=== PATIENT | male | born 1945 | race Caucasian/White ===

== ENCOUNTER → 2016-05-24 | Outpatient (CLI) | payer BC ==
[~2016-05-24] MED LIST: ALL60 PO
== END | disposition home or self-care (01) ==
LOC: C.LAB 09:48
PROVIDERS: ATTEND Urology
DX: C61 Malignant neoplasm of prostate (principal)

== ENCOUNTER → 2016-06-21 | Outpatient (CLI) | payer BC ==
[~2016-06-21] MED LIST changes: +OPTIRAY 320 IV PRN
--- NOTE | 2016-06-21 13:17 | DIAGNOSTIC IMAGING REPORT ---
ABDOMEN AND PELVIS CT WITH IV AND ORAL CONTRAST CT DOSE: HISTORY: C61 Malignant neoplasm of prostate TECHNIQUE: Multiaxial CT images of the abdomen and pelvis were performed following the use of intravenous and oral contrast. COMPARISON STUDY: Abdomen and pelvis CT 05/05/2011. FINDINGS: Partial opacification of the left lower lobe bronchi with tree-in-bud nodular opacities. This has improved in the interval. This favors a chronic bronchiolitis. No suspicious lytic or blastic osseous lesions. There is a 5 mm hypodense lesion within the left hepatic lobe. This is too small to characterize. The gallbladder, spleen, right adrenal gland, and pancreas are unremarkable. Stable mild thickening within the left adrenal gland. There are few bilateral renal hypodense lesions. The largest within the lower pole of the right kidney measures 1.4 cm. The largest in the left kidney measures 3.9 cm. These likely represent cysts. No hydronephrosis. No retroperitoneal or mesenteric lymphadenopathy. A 1.4 cm cystic focus within the upper right rectus abdominis muscle. This is best seen on image 191. Tiny fat-containing umbilical hernia. Mild bladder wall thickening. The prostate gland is surgically absent. Multiple pelvic surgical clips. No pelvic lymphadenopathy. No bowel wall thickening or obstruction. Normal appendix. IMPRESSION: 1. Status post prostatectomy. No evidence for metastatic disease within the abdomen or pelvis. 2. A 1.4 cm hypodense/cystic lesion within the right rectus abdominis muscle. This is of uncertain clinical significance. This is unlikely to represent a metastatic focus. However, this bears watching future examinations to ensure stability. 3. Mild bladder wall thickening, unchanged. 4. Improved aeration within the left lower lobe. There is persistent partial opacification of the left lower lobe bronchi and tree-in-bud nodular opacities. This may represent a chronic bronchiolitis. Electronically signed by: Segun Soto M.D. 06/21/2016 1:16 PM Dictated Date/Time: 06/21/2016 1:04 PM
--- NOTE | 2016-06-21 13:21 | DIAGNOSTIC IMAGING REPORT ---
WHOLE BODY BONE SCAN HISTORY: C61 Malignant neoplasm of prostate RADIOTRACER: 27.5 mCi Tc-99m MDP STUDY/IMAGES: Planar anterior and posterior whole body imaging was performed 3 hours following the intravenous administration of radiotracer. COMPARISON: Abdomen and pelvis CT 06/21/2016. FINDINGS: No suspicious areas of radiotracer uptake seen within the axial or appendicular skeleton. Mild radiotracer uptake seen within the shoulders, knees, left lower cervical spine and right wrist favor degenerative change. IMPRESSION: No evidence for metastatic disease within the axial or appendicular skeleton. Electronically signed by: Segun Soto M.D. 06/21/2016 1:19 PM Dictated Date/Time: 06/21/2016 1:16 PM
== END | disposition home or self-care (01) ==
LOC: C.NUCL 09:41
PROVIDERS: ATTEND Urology
DX: C61 Malignant neoplasm of prostate (principal)

== ENCOUNTER → 2016-09-21 | Outpatient (CLI) | payer BC ==
[~2016-09-21] MED LIST changes: -OPTIRAY 320 IV PRN
== END | disposition home or self-care (01) ==
LOC: C.LAB1850 09:55
PROVIDERS: ATTEND Urology
DX: C61 Malignant neoplasm of prostate (principal)

== ENCOUNTER → 2016-12-22 | Outpatient (CLI) | payer BC | END | disposition home or self-care (01) | LOC: C.LAB1850 09:01 | PROVIDERS: ATTEND Urology | DX: C61 Malignant neoplasm of prostate (principal) ==

== ENCOUNTER → 2017-04-25 | Outpatient (CLI) | payer BC | END | disposition home or self-care (01) | LOC: C.LAB1850 10:52 | PROVIDERS: ATTEND Urology | DX: C61 Malignant neoplasm of prostate (principal) ==

== ENCOUNTER → 2017-09-02 | Outpatient (CLI) | payer BC | END | disposition home or self-care (01) | LOC: C.LAB1850 09:18 | PROVIDERS: ATTEND Urology | DX: C61 Malignant neoplasm of prostate (principal) ==

== ENCOUNTER 2019-10-06 11:00 | Observation (INO) ==
[2019-10-06 12:00] LABS: Basophils # (auto) 0.01 K/uL (0-0.2); Basophils % (auto) 0.2 %; Eosinophils # (auto) 0.01 K/uL (0-0.5); Eosinophils % (auto) 0.2 %; Hematocrit (blood only) 36.1 % (42-52); Hemoglobin 13.2 g/dL (14.0-18.0); Lymphocytes # (auto) 1.07 K/uL (1.2-3.4); Lymphocytes % (auto) 17.8 %; Mean Corpuscular Hemoglobin 31.1 pg (25-34); Mean Corpuscular Hgb Conc 36.6 g/dL (32-36); Mean Corpuscular Volume 84.9 fL (80-100); Mean Platelet Volume 9.3 fL (7.4-10.4); Monocytes # (auto) 0.44 K/uL (0.11-0.59); Monocytes % (auto) 7.3 %; Neutrophils # (auto) 4.49 K/uL (1.4-6.5); Neutrophils % (auto) 74.5 %; Platelet Count 217 K/uL (130-400); RDW Coefficient of Variation 12.5 % (11.5-14.5); RDW Standard Deviation 38.4 fL (36.4-46.3); Red Blood Count 4.25 M/uL (4.7-6.1); White Blood Count 6.02 K/uL (4.8-10.8)
[2019-10-06] MEDS ORDERED: SODIUM CHLORIDE 0.9% 1000ML 1,000 ML IV SCH (12:00)
[2019-10-06 12:07] LABS: Appearance Urine Clear (Clear); Bilirubin Urine Negative (Negative); Blood Urine Negative (Negative); Color Urine Yellow; Glucose Urine UA Negative (Negative); Ketones Urine Negative (Negative); Leukocyte Esterase Urine Negative (Negative); Nitrite Urine Negative (Negative); Protein Urine Negative (Negative); Specific Gravity Urine 1.008 (1.000-1.030); Urobilinogen Urine Negative (Negative)
[2019-10-06 12:14] LABS: Partial Thromboplastin Time 26.9 Seconds (21.0-31.0); Prothrombin Time 10.1 Seconds (9.0-12.0)
[2019-10-06 12:17] LABS: Alanine Aminotransferase 24 U/L (12-78); Albumin Level 3.2 gm/dl (3.4-5.0); Aspartate Aminotransferase 20 U/L (15-37); BUN Creatinine Ratio 14.1 (10-20); Bilirubin Direct 0.1 mg/dl (0-0.2); Blood Urea Nitrogen 12 mg/dl (7-18); Carbon Dioxide 25 mmol/L (21-32); Chloride 104 mmol/L (98-107); Creatinine Clr Calc Pharmacy 65.6 ml/min; Est GFR (African American) 100.7; Est GFR (Non-African American) 86.9; Glucose 99 mg/dl (70-99); Lipase 95 U/L (73-393); Magnesium 2.3 mg/dl (1.8-2.4); Potassium 4.2 mmol/L (3.5-5.1); Sodium 134 mmol/L (136-145)
[2019-10-06 12:21] LABS: Albumin Globulin Ratio 0.8 (0.9-2); Alkaline Phosphatase 107 U/L (45-117); Bilirubin,Total 0.5 mg/dl (0.2-1); Globulin 4.1 gm/dl (2.5-4.0); Phosphorus 3.2 mg/dl (2.5-4.9); Total Protein 7.3 gm/dl (6.4-8.2); Troponin I < 0.015 ng/ml (0-0.045)
--- NOTE | 2019-10-06 13:08 | XRay Report ---
XR chest 1V portable CLINICAL HISTORY: Chest Pain dyspnea COMPARISON STUDY: 01/02/2019 FINDINGS: Focal parenchymal infiltrate left base. This is superimposed upon mild chronic fibrotic yazan nge. Lungs otherwise appear clear. Diaphragms are smooth. IMPRESSION: Infiltrate left base. ACT 112: Negative or not required by law. The above report was generated using voice recognition software. It may contain grammatical, syntax or spelling errors. Electronically signed by: Javan Rowe M.D. 10/06/2019 1:07 PM
--- NOTE | 2019-10-06 13:40 | Electrocardiogram Report ---
Test Reason : Blood Pressure : / mmHG Vent. Rate : 068 BPM Atrial Rate : 068 BPM P-R Int : 174 ms QRS Dur : 088 ms QT Int : 412 ms P-R-T Axes : 073 078 072 degrees QTc Int : 438 ms Normal sinus rhythm Normal ECG When compared with ECG of 11-MAY-2011 14:09, No significant change was found Confirmed by Delon Bailey ([id number]) on 10/06/2019 1:40:47 PM Referred By: REFERRED SELF Confirmed By:Delon Bailey
[2019-10-06] MEDS ORDERED: OPTIRAY 320 125ml IV PRN (13:56)
--- NOTE | 2019-10-06 14:04 | CT Scan Report ---
CT angio chest PE protocol CT DOSE: 306.08 mGycm HISTORY: Dyspnea PE - COVid+ TECHNIQUE: Multiaxial CT images of the chest were performed following the intravenous administration of contrast to evaluate the pulmonary arteries. Maximal intensity projection images were also obtaine d. A dose lowering technique was utilized adhering to the principles of ALARA. COMPARISON STUDY: None. FINDINGS: There is a normal caliber thoracic aorta with no evidence for dissection. There is no evide nce for pulmonary embolus. No pleural effusions. No pneumothorax. The liver and spleen are unremarkab le. No mediastinal or hilar lymphadenopathy. The central airways are patent. The lungs are remarkable for left lower lobe parenchymal infiltrate. Lungs otherwise appear clear. IMPRESSION: 1. No evidence for pulmonary embolus. 2. Left lower lobe infiltrate. ACT 112: Negative or not required by law. The above report was generated using voice recognition software. It may contain grammatical, syntax or spelling errors. Electronically signed by: Javan Rowe M.D. 10/06/2019 2:03 PM
[2019-10-06] MEDS ORDERED: AZITHROMYCIN 500 MG in DEXTROSE 5% 250 ML IV ONE (14:17)
[2019-10-06] MEDS ORDERED: cefTRIAXone SODIUM 2,000 MG/70 ML BAG IV STA (14:17)
--- NOTE | 2019-10-06 15:48 | History & Physical Report ---
Date of Service October 06, 2019 Assessment & Plan (1) Community acquired pneumonia: Suspected bacterial pneumonia based on CT. Although WBC, procalcitonin and history not conclusive of this, therefore will observe overnight and aim for discharge tomorrow as long as he is improving. Continue ceftriaxone and azithromycin (2) COVID-19: Prior outpatient testing COVID-19 positive within 14 days Admit to COVID-19 unit Monitor for hypoxia although his symptoms are mostly GI related (3) Diarrhea due to COVID-19: (4) Dyspnea on minimal exertion: Secondary to COVID-19 and now CAP as above. (5) Prostate cancer: Noted to be on leuprolide injections every 4 months. PSA stable since December 2018 without lower obstructive symptoms (6) Hypertension: Continue lisinopril 10mg PO HS (7) DVT prophylaxis: Deferred SCDs or chemical prophylaxis as ambulatory and likely short stay Admission and Anticipated Discharge Date Admission Date: 10/06/2019 History of Present Illness Chief Complaint: Shortness of breath Primary Care Provider: MATTIE Gutierres, MS, [facility] Roberto Gonzalez is a 74 year old male who presents to the ER due to ongoing diarrheal illness and low grade fevers since being diagnosed with COVID-19. Initial illness started on September 24 with generalized muscle aches. He became significantly worse with fevers > 100, loose non-watery brown stool, loss of appetite and taste the following day. He was tested for COVID-19 by his PCP and subsequently came back positive. He has been self isolating in his house since diagnosis and his has not fallen ill. No double worsening of his illness but he felt he was not keeping up with his oral intake and did not feel he was significantly improving so decided to come to the ER. For the past 2 days his fevers are now < 100 and diarrhea has improved with Immodium. He denies any abdominal pain, nausea, vomiting, melena or blood in stool. On occasional he does feel like food is getting stuck in his esophagus or stomach and just not moving through. Initial plan was to discharge him home with diagnosis of CAP based on CT findings, but on discussion with his she is concerned about caring for him at home and needing to return to the ER as they live almost 35 minutes away in an emergency. In addition his WBC and procalcitonin level was negative therefore I am less confident he would significantly improve on antibiotics at home and recommended observation at least overnight. Allergies Allergy/AdvReac Type Severity Reaction Status Date / Time No Known Allergies Allergy Unknown Verified 10/06/19 12:10 Home Medications Home Medications Medication Instructions Recorded Confirmed Type albuterol sulfate 90 mcg/actuation 1 puffs INHALATION Q6H PRN gm 11/28/18 10/06/19 History aerosol inhaler azelastine 137 mcg (0.1 %) nasal 2 sprays INTRANASAL DAILY PRN #8 ml 11/28/18 10/06/19 History spray aerosol fexofenadine 180 mg tablet 180 mg PO QAM tab 11/28/18 10/06/19 History leuprolide (4 month) 30 mg (4 30 mg IM Q16W #1 ea 04/20/19 10/06/19 Rx month) intramuscular syringe kit lisinopril 10 mg PO HS 10/06/19 10/06/19 History Past Med/Surg History Medical History Basal cell carcinoma (Inactive) Chronic cough Chronic rhinitis Surgical History History of bladder surgery Hx of prostatectomy Family History Other Family history non-contributory Denies family history of Ovarian cancer Prostate cancer Diabetes Myocardial infarction Breast cancer Lung cancer Colorectal cancer Stroke Social History Preferred Language: [place] Communication Ability: Effective Visual Impairment: No Limitations Hearing Ability: Normal Ivory Polisher Required: No Beliefs That Will Affect Care: None marital status: Current Living Situation: Spouse current occupational status: retired Other Information That Helps Us Care for You: No Feels Safe at Home: Yes Safety Concerns: Feels Safe At This Time Smoking Status: Never smoker Second Hand Exposure: No ; Hx Alcohol Use: Yes Alcohol type: beer Alcohol Intake Frequency: Weekly Hx Substance Use: No Childhood Exposure to Second-Hand Smoke: Yes caffeine: No Review of Systems Review of Systems: All systems reviewed & are unremarkable except as noted in HPI & below Physical Exam Constitutional: WD/WN, vitals as above no acute distress Eyes: PERRL, conjunctivae normal, anicteric sclerae ENMT: external ear and nose normal, oropharynx normal Neck: trachea midline, no thyromegaly Respiratory: normal respiratory effort, lungs clear to auscultation Cardiovascular: RRR, no murmur, no edema Gastrointestinal (Abdomen): normal bowel sounds, soft, nontender, no hepatosplenomegaly Musculoskeletal: no cyanosis or clubbing, extremities motor strength 5/5 Skin: no rashes, warm and dry Neurologic: moves all extremities and awake; no focal motor deficits and not confused Motor/Sensory: + pronator drift; no sensory deficit Psychiatric: A+Ox3, euthymic affect Genitourinary: no CVA tenderness Lymphatic: no cervical or axillary lymphadenopathy Results & Data Results & Data ([facility]) Vital Signs (Past 12 Hours) Vital Signs Temp Pulse Resp BP Pulse Ox 10/06/19 13:30 66 19 96 10/06/19 12:30 67 19 174/89 H 99 10/06/19 12:00 70 19 144/85 H 97 10/06/19 11:31 74 20 167/88 H 98 10/06/19 11:12 36.8 C 10/06/19 11:03 74 18 96 Diagnostic Findings XR chest 1V portable IMPRESSION: Infiltrate left base. CT angio chest PE protocol IMPRESSION: 1. No evidence for pulmonary embolus. 2. Left lower lobe infiltrate. ECG Indication: SOB/dyspnea Rate (beats per minute): 68 Rhythm: normal sinus Findings: no acute ischemic change Comparison ECG Date: from (May 11, 2011) Change: no significant change Code Status & VTE Plan Code Status Full VTE Prophylaxis Plan VTE Prophylaxis will be ordered: No Reason for no VTE drug order: Treatment not indicated Reason for no VTE mechanical prophylaxis: Treatment not indicated PG Care Time/CCT Total # of Minutes Spent Total Time Spent with Patient: Total time spent is greater than 50% in coordination of care (as documented) at patient's floor/unit and/or counseling patient: Coding Level of Care Code 00851 OBS Care - Level 3 Diagnoses Community acquired pneumonia J18.9 COVID-19 U07.1 Diarrhea due to COVID-19 U07.1; A08.39 Dyspnea on minimal exertion R06.00 Prostate cancer C61 Hypertension I10 DVT prophylaxis Z29.9
[2019-10-06] MEDS ORDERED: ALBUTEROL HFA 8 GM INHALER INH PRN (16:53)
[2019-10-06] MEDS ORDERED: MAGNESIUM HYDROXIDE SUSP 30 ML UDC PO PRN (16:53)
[2019-10-06] MEDS ORDERED: ONDANSETRON INJ 2 MG/ML 2 ML VIAL IV PRN (16:53)
[2019-10-06] MEDS ORDERED: LOPERAMIDE HCL 2 MG CAP PO PRN (16:53)
[2019-10-06] MEDS ORDERED: ACETAMINOPHEN 325 MG TAB PO PRN (16:53)
[2019-10-06] MEDS ORDERED: POLYETHYLENE (MIRALAX) 17 GM PACK PO PRN (16:53)
[2019-10-06] MEDS ORDERED: ALUMINUM/MAGNESIUM SUSP 30 ML UDC PO PRN (16:53)
[2019-10-06] MEDS ORDERED: cefTRIAXone SODIUM 2,000 MG in DEXTROSE 5% 50 ML IV SCH (18:00)
--- NOTE | 2019-10-06 18:08 | Emergency Department Note ---
Impression & Plan COVID-19, Community acquired pneumonia, Hypertension, Prostate cancer, Dyspnea on minimal exertion, Nausea & vomiting, Diarrhea due to COVID-19 ED Provider Note NAME: JESSA YUN AGE: 74 SEX: M ARRIVES VIA: Walk-In INFORMANT: Patient, ED PROVIDER(S): Bhavik Quiroz MD CHIEF COMPLAINT: Shortness of breath, fevers, nausea, vomiting, diarrhea. PLAN: Disposition: Admit MEDICAL DECISION MAKING: The patient is a pleasant 74-year-old gentleman with a past medical history of hypertension and prostate cancer status post treatment who presents emergency department for worsening shortness of breath, generalized weakness, nausea, vomi ting, diarrhea and decreased oral intake over the past week in the setting of being diagnosed with COVID-19 on Tuesday with symptoms starting on 09/24 in the setting of being exposed to his kntlst-xh-ecp who was diagnosed with COVID-19 is now admitted at [facility]. He reports his only interaction with his orvxbg-ah-ksp was when he was getting sicker and he went over to help facilitate with his transfer to the hospital by ambulance. He recalls helping him get his things together and there was a fan in the house "blowing all the air around." On arrival the patient is uncomfortable appearing but no acute distress, afebrile with stable vital signs. He has subtle rhonchi in the left lung base and otherwise lungs are clear. EKG without overt acute ischemia. Patient's chest x-ray does demonstrate subtle left basilar infiltrate. WBC and place within normal limits. H/H 13.2/36.1 without recent values for comparison. Chemistry without acidosis. Electrolytes and LFTs unremarkable. Troponin negative/undetectable. Lactate within normal limits. UA negative. Given the patient's report of shortness of breath that seems out of proportion to CXR findings, CTA of the chest was performed and negative for PE but does show more appreciable left basilar infiltrate. While patient blood work and vital signs are stable, given the patient's age and his presentation with worsening symptoms within a window where a high risk patient could have precipitous decline related to COVID-19 complications he did agree to proceed with admission. Will treat with ceftriaxone and azithromycin given the patient's infiltrate. Case was discussed with Dr. Fernández, [facility] hospitalist, who will evaluate the patient for admission. Triage Nursing notes reviewed and agree them. Prior medical records reviewed Vital Signs: reviewed and remarkable for no significant abnormalities Differential diagnosis: Reactive airway disease, pneumonia, pneumothorax, COPD, CHF, infections, cardiac ischemia, pulmonary embolism, musculoskeletal, gastrointestinal, as well as other pathologies. ER treatment provided: See below. Diagnostics interpreted by me: ECG: NSR, 68 bpm, normal axis, no ectopy, no overt ST elevation or depression. Cardiac Monitoring: An order for continuous cardiac monitoring was placed and demonstrated NSR, 68 bpm, no ectopy Laboratory studies: See below Imaging studies: XR chest 1V portable CLINICAL HISTORY: Chest Pain dyspnea COMPARISON STUDY: 01/02/2019 FINDINGS: Focal parenchymal infiltrate left base. This is superimposed upon mild chronic fibrotic change. Lungs otherwise appear clear. Diaphragms are smooth. IMPRESSION: Infiltrate left base. -- CT angio chest PE protocol CT DOSE: 306.08 mGycm HISTORY: Dyspnea PE - COVid+ TECHNIQUE: Multiaxial CT images of the chest were performed following the intravenous administration of contrast to evaluate the pulmonary arteries. Maximal intensity projection images were also obtained. A dose lowering technique was utilized adhering to the principles of ALARA. COMPARISON STUDY: None. FINDINGS: There is a normal caliber thoracic aorta with no evidence for dissection. There is no evidence for pulmonary embolus. No pleural effusions. No pneumothorax. The liver and spleen are unremarkable. No mediastinal or hilar lymphadenopathy. The central airways are patent. The lungs are remarkable for left lower lobe parenchymal infiltrate. Lungs otherwise appear clear. IMPRESSION: 1. No evidence for pulmonary embolus. 2. Left lower lobe infiltrate. Consultation(s): Case was discussed with Dr. Fernández, [facility] hospitalist, who will evaluate the patient for admission. HPI: The patient is a pleasant 74-year-old gentleman with a past medical history of hypertension and prostate cancer status post treatment who presents emergency department for worsening shortness of breath, generalized weakness, nausea, vomiting, diarrhea and decreased oral intake over the past week in the setting of being diagnosed with COVID-19 on Tuesday with symptoms starting on 09/24 in the setting of being exposed to his kkiisw-ip-ate who was diagnosed with COVID-19 is now admitted at [facility]. He reports his only interaction with his wijxmm-wz-ehu was when he was getting sicker and he went over to help facilitate with his transfer to the hospital by ambulance. He recalls helping him get his things together and there was a fan in the house "blowing all the air around." ROS: See above HPI for pertinent positives & negatives. A total of 10 systems reviewed and were otherwise negative. PAST MEDICAL HISTORY:See Below PAST SURGICAL HISTORY:See Below FAMILY HISTORY:See Below SOCIAL HISTORY:See Below HOME MEDICATIONS:See Below ALLERGIES:See Below VITALS:See Below PHYSICAL EXAMINATION: GENERAL: Awake, alert, fatigued-appearing, in no distress HENT: Normocephalic, atraumatic. Oropharynx with dry mucous membranes and otherwise unremarkable. EYES: Normal conjunctiva. Sclera non-icteric. NECK: Supple. No nuchal rigidity. FROM. No JVD. RESPIRATORY: Clear to auscultation. CARDIAC: Regular rate, normal rhythm. Extremities warm and well perfused. Pulses equal. ABDOMEN: Soft, non-distended. No tenderness to palpation. No rebound or guarding. No masses. RECTAL: Deferred. MUSCULOSKELETAL: Chest examination reveals no tenderness. The back is symmetrical on inspection without obvious abnormality. There is no CVA tenderness to palpation. No joint edema. LOWER EXTREMITIES: Calves are equal size bilaterally and non-tender. No edema. No discoloration. NEURO: Normal sensorium. No sensory or motor deficits noted. SKIN: No rash or jaundice noted. Bhavik Quiroz MD Past Med/Surg History Medical History Basal cell carcinoma (Inactive) Chronic cough Chronic rhinitis Surgical History History of bladder surgery Hx of prostatectomy Family History Other Family history non-contributory Denies family history of Ovarian cancer Prostate cancer Diabetes Myocardial infarction Breast cancer Lung cancer Colorectal cancer Stroke Social History Preferred Language: Sami Communication Ability: Effective Visual Impairment: No Limitations Hearing Ability: Normal Senior Communications Specialist Required: No Beliefs That Will Affect Care: None marital status: Current Living Situation: Spouse current occupational status: retired Other Information That Helps Us Care for You: No Feels Safe at Home: Yes Safety Concerns: Feels Safe At This Time Smoking Status: Never smoker Second Hand Exposure: No ; Hx Alcohol Use: Yes Alcohol type: beer Alcohol Intake Frequency: Weekly Hx Substance Use: No Childhood Exposure to Second-Hand Smoke: Yes caffeine: No Allergies Allergies Allergy/AdvReac Type Severity Reaction Status Date / Time No Known Allergies Allergy Unknown Verified 10/06/19 12:10 Home Meds Home Medications Medication Instructions Recorded Confirmed albuterol sulfate 90 mcg/actuation 1 puffs INHALATION Q6H PRN gm 11/28/18 10/06/19 aerosol inhaler azelastine 137 mcg (0.1 %) nasal 2 sprays INTRANASAL DAILY PRN #8 ml 11/28/18 10/06/19 spray aerosol fexofenadine 180 mg tablet 180 mg PO QAM tab 11/28/18 10/06/19 lisinopril 10 mg PO HS 10/06/19 10/06/19 Previous Rx's Medication Instructions Recorded leuprolide (4 month) 30 mg (4 30 mg IM Q16W #1 ea 04/20/19 month) intramuscular syringe kit Results & Data (ED) Vital Signs Vital Signs - 24 hr 10/06/19 11:03 10/06/19 11:12 10/06/19 11:31 Temperature 36.8 C Temperature Source Oral Pulse Rate 74 74 Pulse Rate from SpO2 Sensor 60 Respiratory Rate 18 20 Respiratory Effort / Characteristics Non-Labored Respiratory Depth Normal Blood Pressure 167/88 H Blood Pressure Mean 116 Pulse Oximetry 96 98 Oxygen Delivery Method Room Air Room Air Sepsis Recent Fever Within 48 Hours No Sepsis New/Unexplained Change in Mental Status No Sepsis Action Taken by Nursing No Action Required 10/06/19 11:50 10/06/19 12:00 10/06/19 12:30 Temperature Temperature Source Pulse Rate 70 67 Pulse Rate from SpO2 Sensor 63 69 Respiratory Rate 19 19 Respiratory Effort / Characteristics Respiratory Depth Blood Pressure 144/85 H 174/89 H Blood Pressure Mean 113 125 Pulse Oximetry 97 99 Oxygen Delivery Method Room Air Room Air Room Air Sepsis Recent Fever Within 48 Hours Sepsis New/Unexplained Change in Mental Status Sepsis Action Taken by Nursing 10/06/19 13:30 10/06/19 14:57 10/06/19 15:00 Temperature Temperature Source Pulse Rate 66 77 79 Pulse Rate from SpO2 Sensor 58 L 79 79 Respiratory Rate 19 26 H 24 Respiratory Effort / Characteristics Respiratory Depth Blood Pressure 142/120 H 161/104 H Blood Pressure Mean 126 136 Pulse Oximetry 96 98 97 Oxygen Delivery Method Room Air Room Air Room Air Sepsis Recent Fever Within 48 Hours Sepsis New/Unexplained Change in Mental Status Sepsis Action Taken by Nursing 10/06/19 15:31 Temperature Temperature Source Pulse Rate 82 Pulse Rate from SpO2 Sensor 69 Respiratory Rate 26 H Respiratory Effort / Characteristics Respiratory Depth Blood Pressure 162/105 H Blood Pressure Mean 140 Pulse Oximetry 95 Oxygen Delivery Method Room Air Sepsis Recent Fever Within 48 Hours Sepsis New/Unexplained Change in Mental Status Sepsis Action Taken by Nursing Laboratory Data Attestation: I reviewed the patient's lab results. Result diagrams: 10/06/19 11:30 10/06/19 11:30 Lab Results 10/06/19 10/06/19 10/06/19 Range/Units 11:30 11:30 11:30 WBC 6.02 (4.8-10.8) K/uL RBC 4.25 L (4.7-6.1) M/uL Hgb 13.2 L (14.0-18.0) g/dL Hct 36.1 L (42-52) % MCV 84.9 (80-100) fL MCH 31.1 (25-34) pg MCHC 36.6 H (32-36) g/dL RDW Std Deviation 38.4 (36.4-46.3) fL RDW Coeff of Prabhu 12.5 (11.5-14.5) % Plt Count 217 (130-400) K/uL MPV 9.3 (7.4-10.4) fL Immature Gran % (Auto) 0.0 % Neut % (Auto) 74.5 % Lymph % (Auto) 17.8 % [place] % (Auto) 7.3 % Eos % (Auto) 0.2 % Baso % (Auto) 0.2 % Immature Gran # (Auto) 0.00 (0.00-0.02) K/uL Neut # (Auto) 4.49 (1.4-6.5) K/uL Lymph # (Auto) 1.07 L (1.2-3.4) K/uL [place] # (Auto) 0.44 (0.11-0.59) K/uL Eos # (Auto) 0.01 (0-0.5) K/uL Baso # (Auto) 0.01 (0-0.2) K/uL PT 10.1 (9.0-12.0) Seconds INR 1.0 (0.9-1.1) APTT 26.9 (21.0-31.0) Seconds PTT Ratio 1.0 Sodium 134 L (136-145) mmol/L Potassium 4.2 (3.5-5.1) mmol/L Chloride 104 (98-107) mmol/L Carbon Dioxide 25 (21-32) mmol/L Anion Gap 5.0 (3-11) BUN 12 (7-18) mg/dl Creatinine 0.84 (0.6-1.4) mg/dl Est Cr Clr Drug Dosing 65.6 ml/min Est GFR ( Amer) 100.7 Est GFR (Non-Af Amer) 86.9 BUN/Creatinine Ratio 14.1 (10-20) Glucose 99 (70-99) mg/dl Lactate (0.4-2.0) mmol/L Calcium 9.0 (8.5-10.1) mg/dl Phosphorus 3.2 (2.5-4.9) mg/dl Magnesium 2.3 (1.8-2.4) mg/dl Total Bilirubin 0.5 (0.2-1) mg/dl Direct Bilirubin 0.1 (0-0.2) mg/dl AST 20 (15-37) U/L ALT 24 (12-78) U/L Alkaline Phosphatase 107 (45-117) U/L Troponin I < 0.015 (0-0.045) ng/ml Total Protein 7.3 (6.4-8.2) gm/dl Albumin 3.2 L (3.4-5.0) gm/dl Globulin 4.1 H (2.5-4.0) gm/dl Albumin/Globulin Ratio 0.8 L (0.9-2) Lipase 95 (73-393) U/L Procalcitonin (0-0.5) ng/ml Urine Color Urine Appearance (Clear) Urine pH (4.5-7.5) Ur Specific [place] (1.000-1.030) Urine Protein (Negative) Urine Glucose (UA) (Negative) Urine Ketones (Negative) Urine Blood (Negative) Urine Nitrite (Negative) Urine Bilirubin (Negative) Urine Urobilinogen (Negative) Ur Leukocyte Esterase (Negative) 06/20/20 06/20/20 06/20/20 Range/Units 11:30 11:30 14:48 WBC (4.8-10.8) K/uL RBC (4.7-6.1) M/uL Hgb (14.0-18.0) g/dL Hct (42-52) % MCV (80-100) fL MCH (25-34) pg MCHC (32-36) g/dL RDW Std Deviation (36.4-46.3) fL RDW Coeff of Prabhu (11.5-14.5) % Plt Count (130-400) K/uL MPV (7.4-10.4) fL Immature Gran % (Auto) % Neut % (Auto) % Lymph % (Auto) % [place] % (Auto) % Eos % (Auto) % Baso % (Auto) % Immature Gran # (Auto) (0.00-0.02) K/uL Neut # (Auto) (1.4-6.5) K/uL Lymph # (Auto) (1.2-3.4) K/uL [place] # (Auto) (0.11-0.59) K/uL Eos # (Auto) (0-0.5) K/uL Baso # (Auto) (0-0.2) K/uL PT (9.0-12.0) Seconds INR (0.9-1.1) APTT (21.0-31.0) Seconds PTT Ratio Sodium (136-145) mmol/L Potassium (3.5-5.1) mmol/L Chloride (98-107) mmol/L Carbon Dioxide (21-32) mmol/L Anion Gap (3-11) BUN (7-18) mg/dl Creatinine (0.6-1.4) mg/dl Est Cr Clr Drug Dosing ml/min Est GFR ( Amer) Est GFR (Non-Af Amer) BUN/Creatinine Ratio (10-20) Glucose (70-99) mg/dl Lactate 0.8 (0.4-2.0) mmol/L Calcium (8.5-10.1) mg/dl Phosphorus (2.5-4.9) mg/dl Magnesium (1.8-2.4) mg/dl Total Bilirubin (0.2-1) mg/dl Direct Bilirubin (0-0.2) mg/dl AST (15-37) U/L ALT (12-78) U/L Alkaline Phosphatase (45-117) U/L Troponin I (0-0.045) ng/ml Total Protein (6.4-8.2) gm/dl Albumin (3.4-5.0) gm/dl Globulin (2.5-4.0) gm/dl Albumin/Globulin Ratio (0.9-2) Lipase (73-393) U/L Procalcitonin < 0.05 (0-0.5) ng/ml Urine Color Yellow Urine Appearance Clear (Clear) Urine pH 7.0 (4.5-7.5) Ur Specific [place] 1.008 (1.000-1.030) Urine Protein Negative (Negative) Urine Glucose (UA) Negative (Negative) Urine Ketones Negative (Negative) Urine Blood Negative (Negative) Urine Nitrite Negative (Negative) Urine Bilirubin Negative (Negative) Urine Urobilinogen Negative (Negative) Ur Leukocyte Esterase Negative (Negative) Administered Medications Ceftriaxone Sodium 2,000 mg/ (Dextrose) 70 mls @ 100 mls/hr IV Q24H ROSEANN; Protocol Stop: 10/13/19 17:59 Last Infusion: 10/06/19 18:51 Dose: 0 mls/hr Documented by: [id number] Admin: 10/06/19 18:10 Dose: 100 mls/hr Documented by: [id number] Ioversol (Optiray 320 125ml) 121 ml IV ONCE PRN PRN Reason: Interaction Checking Stop: 10/10/19 13:55 Last Admin: 10/06/19 13:57 Dose: 121 ml Documented by: [id number] Lisinopril (Zestril) 10 mg PO HS ROSEANN Stop: 11/05/19 20:59 Last Admin: 10/06/19 20:22 Dose: 10 mg Documented by: [id number] Discontinued Medications Sodium Chloride (Nss 1000ml) 1,000 mls @ 999 mls/hr IV .Q1H1M ROSEANN Stop: 10/06/19 13:00 Last Infusion: 10/06/19 13:04 Dose: 0 mls/hr Documented by: [id number] Admin: 10/06/19 12:00 Dose: 999 mls/hr Documented by: [id number] Ceftriaxone Sodium (Rocephin) 2,000 mg in 70 mls @ 140 mls/hr IV NOW STA Stop: 10/06/19 14:46 Last Admin: 10/06/19 17:26 Dose: Not Given Documented by: [id number] Azithromycin 500 mg/ Dextrose 255 mls @ 125 mls/hr IV ONE ONE Stop: 10/06/19 16:19 Last Infusion: 10/06/19 17:37 Dose: 0 mls/hr Documented by: [id number] Admin: 10/06/19 14:55 Dose: 125 mls/hr Documented by: [id number] Blood Pressure Blood Pressure Findings: Elevated blood pressure Discharge Plan Visit Data *Final* Discharge Date/Time: 10/06/19 16:15 Chief Complaint: Illness Stated Complaint: TIGHTNESS IN CHEST ED Provider: Bhavik Quiroz Discharge Problem: COVID-19, Community acquired pneumonia, Hypertension, Prostate cancer, Dyspnea on minimal exertion, Nausea & vomiting, Diarrhea due to COVID-19 Patient Disposition: Admitted As Inpatient Discharge Instructions Interventions: ED Discharge Assessment Last Done: 10/06/19 16:15
[2019-10-06] MEDS ORDERED: lisinopriL 10 MG TAB PO SCH (21:00)
[2019-10-07] MEDS ORDERED: FEXOFENADINE HCL 180 MG TAB PO SCH (09:00)
[2019-10-07] MEDS ORDERED: AZITHROMYCIN 250 MG TAB PO SCH (09:00)
--- NOTE | 2019-10-07 12:59 | Discharge Summary ---
Date of Service October 07, 2019 Admission HPI Per Admitting Provider Roberto Gonzalez is a 74 year old male who presents to the ER due to ongoing diarrheal illness and low grade fevers since being diagnosed with COVID-19. Initial illness started on September 24 with generalized muscle aches. He became significantly worse with fevers > 100, loose non-watery brown stool, loss of appetite and taste the following day. He was tested for COVID-19 by his PCP and subsequently came back positive. He has been self isolating in his house since diagnosis and his has not fallen ill. No double worsening of his illness but he felt he was not keeping up with his oral intake and did not feel he was significantly improving so decided to come to the ER. For the past 2 days his fevers are now < 100 and diarrhea has improved with Immodium. He denies any abdominal pain, nausea, vomiting, melena or blood in stool. On occasional he does feel like food is getting stuck in his esophagus or stomach and just not moving through. Initial plan was to discharge him home with diagnosis of CAP based on CT kat romero, but on discussion with his she is concerned about caring for him at home and needing to return to the ER as they live almost 35 minutes away in an emergency. In addition his WBC and procalcitonin level was negative therefore I am less confident he would significantly improve on antibiotics at home and recommended observation at least overnight. Principal Diagnosis COVID-19, pneumonia, dehydration Discharge Exam Constitutional WD/WN, vitals as above Eyes + anicteric sclerae Neck trachea midline, no thyromegaly Respiratory normal respiratory effort, lungs clear to auscultation Cardiovascular RRR, no murmur, no edema Chest (Breasts) Chest: normal inspection of chest Gastrointestinal (Abdomen) normal bowel sounds, soft, nontender, no hepatosplenomegaly Musculoskeletal Extremities: extremities normal to inspection; no cyanosis and no clubbing Skin no rashes, warm and dry Neurologic moves all extremities and awake; no focal motor deficits Psychiatric A+Ox3, euthymic affect Lymphatic no lymphedema Discharge Data Allergies Allergy/AdvReac Type Severity Reaction Status Date / Time No Known Allergies Allergy Unknown Verified 10/06/19 12:10 Consultations 10/06/19 14:28 ED Decision to Admit Stat Ordered Studies 10/06/19 13:12 CT angio chest PE protocol Stat Hospital Course (1) Community acquired pneumonia: Suspected bacterial pneumonia based on CT. Although WBC, procalcitonin and history not conclusive of this, therefore was observed overnight and doing very well, not hypoxic at rest or with ambulation in the hallways He received ceftriaxone and azithromycin and will be discharged to home with oral antibiotics Walked halls with RN on POx and never dropped below 95%, no JEFFERY (2) COVID-19: Prior outpatient testing COVID-19 positive within 14 days He was admitted to COVID-19 unit Mostly had GI symptoms and fevers which are now resolved Eating more, feeling much better after IV fluid hydration overnight No cough, no further diarrhea Stable for discharge to home will continue on quarantine at home (3) Diarrhea due to COVID-19: Now resolved (4) Dyspnea on minimal exertion: Secondary to COVID-19 and now CAP as above. Much improved Not hypoxic (5) Prostate cancer: Noted to be on leuprolide injections every 4 months. PSA stable since December 2018 without lower obstructive symptoms Follow-up as an outpatient with urology (6) Hypertension: Continue lisinopril 10mg PO HS (7) DVT prophylaxis: Deferred SCDs or chemical prophylaxis as ambulatory and likely short stay Disposition-stable for discharged home Total Time Total Time Spent Total Time Spent (In Minutes): Greater than 30 minutes Total Time Includes: Examination of the Patient, Discharge Planning and Medication Reconciliation Discharge Plan Discharge Items Patient Disposition: Home - Self-Care Reason For Visit: COMMUNITY ACQUIRED PNEUMONIA, COVID-19 Discharge Diagnosis: Community acquired pneumonia, dehydration, COVID-19 Condition on Discharge: Good Activity: As commented below Lifting: Gradually increase as tolerated Bathing: No limitations Exercise/Sports: Gradually increase as tolerated Driving/Machine Use: No limitations Weightbearing: Full weightbearing Non-emergency contact: Primary Care Provider Call non-emergency contact if: you have any medication questions and your symptoms worsen Follow-up/Referrals: Aurelia Rios CRNP, MS, [facility] [Primary Care Provider] - (Please call by phone for follow up appointment ) Diet: Heart Healthy Addtl Attending Provider Instructions: Finish out the course of antibiotics for your pneumonia for the next 4 days. If you feel worsening shortness of breath, chest pain, lightheadedness, or weakness, please return to the hospital. Home Isolation COVID-19 Instructions The following information about Home Isolation is from the CDC Website: https://www.cdc.gov/coronavirus/2019-ncov/hcp/nocpalvx-jmtfftr-ctyytv.html Stay home except to get medical care People who are mildly ill with COVID-19 are able to isolate at home during their illness. You should restrict activities outside your home, except for getting medical care. Do not go to work, school, or public areas. Avoid using public transportation, ride-sharing, or taxis. Separate yourself from other people and animals in your home People: As much as possible, you should stay in a specific room and away from other people in your home. Also, you should use a separate bathroom, if available. Animals: You should restrict contact with pets and other animals while you are sick with COVID-19, just like you would around other people. Although there have not been reports of pets or other animals becoming sick with COVID-19, it is still recommended that people sick with COVID-19 limit contact with animals until more information is known about the virus. When possible, have another member of your household care for your animals while you are sick. If you are sick with COVID-19, avoid contact with your pet, including petting, snuggling, being kissed or licked, and sharing food. If you must care for your pet or be around animals while you are sick, wash your hands before and after you interact with pets and wear a face mask. Call ahead before visiting your doctor If you have a medical appointment, call the healthcare provider and tell them that you have or may have COVID-19. This will help the healthcare providers office take steps to keep other people from getting infected or exposed. Wear a face mask You should wear a face mask when you are around other people (e.g., sharing a room or vehicle) or pets and before you enter a healthcare providers office. If you are not able to wear a face mask (for example, because it causes trouble breathing), then people who live with you should not stay in the same room with you, or they should wear a face mask if they enter your room. Cover your coughs and sneezes Cover your mouth and nose with a tissue when you cough or sneeze. Throw used tissues in a lined trash can. Immediately wash your hands with soap and water for at least 20 seconds or, if soap and water are not available, clean your hands with an alcohol-based hand salesperson hearing aids that contains at least 60% alcohol. Clean your hands often Wash your hands often with soap and water for at least 20 seconds, especially after blowing your nose, coughing, or sneezing; going to the bathroom; and before eating or preparing food. If soap and water are not readily available, use an alcohol-based hand salesperson hearing aids with at least 60% alcohol, covering all surfaces of your hands and rubbing them together until they feel dry. Soap and water are the best option if hands are visibly dirty. Avoid touching your eyes, nose, and mouth with unwashed hands. Avoid sharing personal household items You should not share dishes, drinking glasses, cups, eating utensils, towels, or bedding with other people or pets in your home. After using these items, they should be washed thoroughly with soap and water. Clean all high-touch surfaces everyday High touch surfaces include counters, tabletops, doorknobs, bathroom fixtures, toilets, phones, keyboards, tablets, and bedside tables. Also, clean any surfaces that may have blood, stool, or body fluids on them. Use a household cleaning spray or wipe, according to the label instructions. Labels contain instructions for safe and effective use of the cleaning product including precautions you should take when applying the product, such as wearing gloves and making sure you have good ventilation during use of the product. Monitor your symptoms Seek prompt medical attention if your illness is worsening (e.g., difficulty breathing).Beforeseeking care, call your healthcare provider and tell them that you have, or are being evaluated for, COVID-19. Put on a face mask before you enter the facility. These steps will help the healthcare providers office to keep other people in the office or waiting room from getting infected or exposed. Ask your healthcare provider to call the local or state health department. Persons who are placed under active monitoring or facilitated self- monitoring should follow instructions provided by their local health department or occupational health professionals, as appropriate. When working with your local health department check their available hours. If you have a medical emergency and need to call 911, notify the dispatch personnel that you have, or are being evaluated for COVID-19. If possible, put on a face mask before emergency medical services arrive. Discontinuing home isolation Patients with confirmed COVID-19 should remain under home isolation precautions until the risk of secondary transmission to others is thought to be low. The decision to discontinue home isolation precautions should be made on a [id number] basis, in consultation with healthcare providers and state and local health departments. Pending Studies at Discharge: Yes Studies:: Final blood culture results-no growth to date Stand-Alone Forms: My [facility] Medications and DC Order Prescriptions: New acetaminophen 325 mg Tablet 650 mg PO Q4H PRN (Reason: fever or pain) Qty: 30 RF: 0 azithromycin 250 mg Tablet 250 mg PO QAM Qty: 3 RF: 0 loperamide 2 mg Capsule 2 mg PO Q2H PRN (Reason: loose stool) Qty: 10 RF: 0 Continued Lupron Depot (4 month) 30 mg syringe kit 30 mg IM Q16W Qty: 1 RF: 0 albuterol sulfate 90 mcg/actuation HFA aerosol inhaler 1 puffs inhalation Q6H PRN (Reason: Shortness Of Breath) RF: 0 azelastine 137 mcg (0.1 %) aerosol,spray 2 sprays intranasal DAILY PRN (Reason: Allergy Symptoms) Qty: 8 RF: 0 fexofenadine 180 mg tablet 180 mg PO QAM RF: 0 lisinopril 10 mg tablet 10 mg PO HS RF: 0 Discharge Orders: Discharge Order (Routine); Ordered 10/07/19 Ordered By: Holly Villela Admission Data Admit Date/Time: 10/06/19 15:49 Attending Provider: Holly Villela Admit Provider: Logan Fernández Primary Care Provider: Aurelia Rios Other Providers: Logan Fernández Other Interventions: Discharge Summary Assessment (RN) Last Done: 10/07/19 12:14 DC Date/Time DO NOT enter until pt leaves facility: 10/07/19 15:11 Coding Level of Care Code 12052 OBS Care - Discharge Diagnoses Community acquired pneumonia J18.9 COVID-19 U07.1 Diarrhea due to COVID-19 U07.1; A08.39 Dyspnea on minimal exertion R06.00 Prostate cancer C61 Hypertension I10 DVT prophylaxis Z29.9
== END 2019-10-07 15:11 | disposition home or self-care (01) ==
LOC: 2E 11:00 → ED 11:00 → SUATTDRO 15:49 → 2E 16:15